=== PATIENT | male | born 2000 | race Caucasian/White ===

== ENCOUNTER 2022-08-10 13:27 | Emergency (ER) | payer BC, SELFPAY ==
[2022-08-10 13:32] VITALS: BP 119/72; PULSE 104; RESP 18; TEMP 37.9; O2SAT 96; BMI 21.7
[2022-08-10 14:26] LABS: PCR FLU A Negative PCR FLU A (Negative); PCR FLU B Negative PCR FLU B (Negative)
[2022-08-10 14:28] LABS: SARS PCR* POSITIVE SARS-CoV-2 (Negative)
--- NOTE | 2022-08-10 14:45 | ED.GENADULT ---
HPI - General Adult General Time Seen by Provider: 14:45 Date Seen: 08/10/22 Chief complaint: Fever Stated complaint: Fever Feels like he's dying Time Seen by Provider: 08/10/22 14:06 Source: patient and RN notes reviewed Mode of arrival: ambulatory Limitations: no limitations History of Present Illness HPI narrative: Roby is a 21-year-old male coming in stating he is feeling miserable. He has been having headaches, body aches, coughing and vomiting with underlying nausea. No diarrhea, no sore throat. He has been running fevers. He has a history of childhood asthma that has not been problematic. He has had some orthopedic injuries with fractures but otherwise no chronic current medical issues. He has been taking ibuprofen which does help with the fever. He has been able to drink but states he has not been able to eat due to vomiting for the last couple days. Nursing staff did do a triple viral swab on him on arrival, I had the result that he was COVID positive by the time I saw him. We did review this. We did review that COVID can be associated with GI symptomatology. Reviewed with him that we are not worried about him not eating at this point, soon as the illness starts to mildred for him, his appetite should recover. As far as fluids, we do need him to be able to drink. We discussed management with doing some IV fluids, some IV Toradol and Zofran while here. He would like to do so. With only 2 days of illness and vitals being stable, I do not feel that he needs a chest x-ray or any labs. At his age, no significant comorbidities, he should recover from this. He has no worrisome findings other than the vomiting which we will initiate some IV fluids and make sure he has some Zofran on discharge. Related Data Previous Rx's Medication Instructions Recorded ondansetron 4 mg disintegrating 4 mg PO Q6H PRN nausea and 08/10/22 tablet vomiting #20 tabs Allergies Allergy/AdvReac Type Severity Reaction Status Date / Time No Known Drug Allergies Allergy Verified 08/10/22 13:35 Review of Systems Status of ROS: Reports: 6 or more systems reviewed and unremarkable except as noted in History and below PFSH PFSH Social History Smoking Status: Never smoker Do you use any of these nicotine containing products: None How often do you have a drink containing alcohol: never AUDIT-C Alcohol total score: 0 Non-prescribed substance use: denies use Exam Const: Vital Signs, click to edit/add: Vital Signs - 24 hr 08/10/22 13:32 Temperature 100.2 F H Pulse Rate [Right Pulse Oximeter] 104 H Respiratory Rate 18 Blood Pressure [Ri ght Upper Arm] 119/72 Pulse Oximetry 96 Oxygen Delivery Me thod Room Air Documenting provider has reviewed patient's vital signs: yes Common normals: no apparent distress, average body habitus, oriented x3, no limitations and alert General appearance: cooperative, comfortable, well kempt, well developed and ill appearing HENMT: Common normals: normocephalic, head/scalp atraumatic, hearing grossly normal bilaterally, external ears normal, TM's normal bilaterally, external nose normal, nasal mucous membranes and turbinates normal, moist oral mucous membranes, oropharynx normal, dentition normal and gingiva normal Head and scalp: normocephalic and atraumatic Nose: external nose normal and nasal mucous membranes and turbinates normal External ear: external ears normal Tympanic membrane: TM's normal bilaterally Eye: Common normals: PERRL, EOMs intact bilaterally, conjunctivae normal and no scleral icterus Conjunctiva: conjunctiva(e) normal Pupil: PERRL Neck & C-Spine: Common normals: full ROM, no lymphadenopathy, supple and no meningeal signs Resp: Common normals: normal respiratory effort, no retractions, no use of accessory muscles and clear to auscultation bilaterally Auscultation: clear to auscultation bilaterally Cardio: Common normals: regular rate, regular rhythm, S1 normal heart sound, S2 normal heart sound, no gallops, no clicks and no murmurs Rate: regular rate Rhythm: regular rhythm Heart sounds: S1 normal and S2 normal GI: Common normals: Normal to inspection, nondistended, normoactive bowel sounds present, soft to palpation, non-tender, no hepatosplenomegaly and no masses Palpation: soft and no hepatosplenomegaly Neuro: Common normals: oriented x3 Sensorium/orientation: alert Meningeal signs: no meningeal signs Psych: Appearance: well kempt Course Course Hospital Course: COVID positive. Complaints of significant nausea and vomiting. Initiate 1 L normal saline, 15 mg IV Toradol and 4 mg IV Zofran. Plan to discharge home with prescription for Zofran. Vital Signs Vital signs: Initial Vital Signs Temperature 100.2 F H 08/10/22 13:32 Temperature Source Temporal Artery Scan 08/10/22 13:32 Pulse Rate 104 H 08/10/22 13:32 Respiratory Rate 18 08/10/22 13:32 Blood Pressure 119/72 08/10/22 13:32 Blood Pressure Mean 87 08/10/22 13:32 Blood Pressure Position Sitting 08/10/22 13:32 Pulse Oximetry 96 08/10/22 13:32 Oxygen Delivery Method 08/10/22 13:32 Vital Signs Temperature 100.2 F H 08/10/22 13:32 Pulse Rate 104 H 08/10/22 13:32 Respiratory Rate 18 08/10/22 13:32 Blood Pressure 119/72 08/10/22 13:32 Pulse Oximetry 96 08/10/22 13:32 Oxygen Delivery Method 08/10/22 13:32 Temperature 100.2 F H 08/10/22 13:32 Pulse Rate 104 H 08/10/22 13:32 Respiratory Rate 18 08/10/22 13:32 Blood Pressure 119/72 08/10/22 13:32 Pulse Oximetry 96 08/10/22 13:32 Oxygen Delivery Method 08/10/22 13:32 Medical Decision Making Lab Data Lab results reviewed: Yes I reviewed the patient's lab results Labs: Lab Results 08/10/22 Range/Units 13:31 SARS-CoV-2 (PCR) POSITIVE SARS-CoV-2 A (Negative) Influenza Type A (PCR) Negative PCR FLU A (Negative) Influenza Type B (PCR) Negative PCR FLU B (Negative) Critical Care Time Critical Care Time Critical Care Time: No Discharge Plan Discharge Clinical Impression: COVID-19 Condition: Stable Instructions: COVID-19 (Coronavirus Disease 2019) (ED) Additional Instructions: Tylenol and ibuprofen alternating every 3-4 hours as needed for fever and symptom control, follow bottle directions for dosing. Use the Zofran as prescribed to help control nausea and vomiting. Take small frequent sips of fluids to help you stay hydrated. Your appetite for solid should improve as you feel better. If you are not improving over the next week, have further concerns or symptoms with this illness, you are recommended to seek re-evaluation. You should quarantine as per CDC guidelines for for COVID-19. Activity Level: Activity as Tolerated Prescriptions: New ondansetron 4 mg tablet,disintegrating 4 mg PO Q6H PRN (Reason: nausea and vomiting) Qty: 20 0RF Stand Alone Forms: [employer] Info Instructions
[2022-08-10] MEDS: 0.9 % SODIUM CHLORIDE 1000 ml 1,000 ML IV (15:26)
[2022-08-10] MEDS: ONDANSETRON 2 MG/ML inj 4 MG IVP (15:27)
[2022-08-10] MEDS: KETOROLAC 15 MG/ML inj IVP (15:27)
== END 2022-08-10 16:07 | disposition home or self-care (01) ==
PROVIDERS: Emergency Provider Family Medicine
DX: U07.1 COVID-19 (principal)
CPT/HCPCS: 87631; 96374; 96375; 99283; 99284; J1885; J2405; J7030

== ENCOUNTER 2022-10-08 21:07 | Emergency (ER) | payer BC, SELFPAY ==
[2022-10-08 21:25] VITALS: BP 134/79; PULSE 90; RESP 18; TEMP 37; O2SAT 99; BMI 21.7
--- NOTE | 2022-10-08 21:42 | ED_ITS ---
HPI - Extremity Injury (Lower) General Time Seen by Provider: 21:42 Date Seen: 10/08/22 Chief Complaint: Extremity Pain/Injury, Lower Stated Complaint: foot injury Time Seen by Provider: 10/08/22 21:42 Source: patient and RN notes reviewed Mode of arrival: ambulatory Limitations: no limitations History of Present Illness HPI Narrative: Patient is a 21-year-old male coming in with a known fracture in his ankle and a bone in his foot per report. He was doing motocross and sustained an injury in [place]. He has a splint on his leg, states it feels too tight. He noticed the development of a blister on the dorsum of his foot tonight. He has had no fevers or chills. States the cast is feeling extremely tight. He notes that he started to have some tingling in his toes. He went to [facility] and it was going to be a 9 hour wait. He is attempting to get scheduled for surgery as he was told this would require surgery. He is awaiting a call back from [place] regarding his orthopedic surgery being scheduled. Related Data Previous Rx's Medication Instructions Recorded ondansetron 4 mg disintegrating 4 mg PO Q6H PRN nausea and 08/10/22 tablet vomiting #20 tabs Allergies Allergy/AdvReac Type Severity Reaction Status Date / Time No Known Drug Allergies Allergy Verified 10/08/22 21:33 Review of Systems Narrative: As per HPI PFSH PFS Social History Smoking Status: Never smoker Do you use any of these nicotine containing products: None How often do you have a drink containing alcohol: never AUDIT-C Alcohol total score: 0 Non-prescribed substance use: denies use Exam Const: Vital Signs, click to edit/add: Vital Signs - 24 hr 10/08/22 21:25 Temperature 98.6 F Pulse Rate [Pulse Oximeter] 90 Respiratory Rate 18 Blood Pressure [Le ft Upper Arm] 134/79 Pulse Oximetry 99 Oxygen Delivery Me thod Room Air Documenting provider has reviewed patient's vital signs: yes Common normals: no apparent distress, average body habitus, oriented x3, no limitations, healthy appearing and alert General appearance: cooperative, comfortable, well kempt and well developed Other: Patient had a posterior short-leg splint with U tongue support on. He had a large blister just at the base of his toes on the dorsum of the foot. It was fluid-filled, clear. The patient's current splint was taken down carefully, observing stability of the extremity. He felt immediate improvement of the tightness in felt better soon as this was taken off. It was a very well done splint but I think the amount of swelling he had was significantly bound by the cast padding. He did have further blisters from the swelling around his ankle and foot. There was more of a blood blister medially along the ankle. There was no concerning skin breakdown. There was quite a bit of swelling and bruising throughout his lower extremity into the foot. I reapplied a posterior splint with U tong support using Ortho Glass and standard materials. Patient stated he felt much better with the new splint on. Patient understands that I would like to reimage his foot and ankle to ensure that there has been no significant breakdown of the fracture realignment. When splinting him, we were extremely careful and noted no concerning movement of his extremity. Neuro: Common normals: oriented x3 Sensorium/orientation: alert Psych: Appearance: well kempt Course Reevaluation(s) Reevaluation #1: Have reviewed options with patient. We do not have Orthopedics that will do this type of fracture surgery here. He really needs specialty care. I cannot transfer him to [place]. He will plan on discharge and sounds as if he may make hi s way to [place] on his own. I am not transferring him there but understand in do understand his desire to go there. He will have to recheck in as an ER patient. Did provide him with 5 mg oral oxycodone tablet while here for some pain relief. At time of discharge, his right toes were warm but swollen. The blister was stable. He could feel when I touched his toes but they would feel tingly. His pain had improved with releasing of his old splint. Time: 00:54 Consultations Consultation #1: Have contacted the transfer center and spoke with Martha MCKEE at [facility]. She will check to make sure all the images are there, will page Orthopedics. Martha did call back, stated patient had not been seen there and Orthopedics would not likely consult on this patient, would recommend that he go back to where he had the cast put on. Reviewed with her that that was in the state of [place]. We reviewed the case a little bit more in depth. She did states that she would call Orthopedics back and see if they would at least look at the images. She called back at 12:33 p.m. a.m.. The orthopedist did state he needs surgery, did want him to come to their ER but he cannot be accepted there at this time as they are on full hospital diversion. She stated that he would need to go to the closest hospital with a had orthopedic capabilities. In all honesty, [facility] was probably quit distant to such places as the [facility] or [place]. Is not likely that [place] would take this lower level trauma at this time anyway. Will review options with the patient. Time: 23:49 Vital Signs Vital signs: Initial Vital Signs Temperature 98.6 F 10/08/22 21:25 Temperature Source Temporal Artery Scan 10/08/22 21:25 Pulse Rate 90 10/08/22 21:25 Pulse Rhythm 10/08/22 21:25 Pulse Strength 3+ Normal 10/08/22 21:25 Respiratory Rate 18 10/08/22 21:25 Blood Pressure 134/79 10/08/22 21:25 Blood Pressure Mean 97 10/08/22 21:25 Blood Pressure Position Sitting 10/08/22 21:25 Pulse Oximetry 99 10/08/22 21:25 Oxygen Delivery Method 10/08/22 21:25 Vital Signs Temperature 98.6 F 10/08/22 21:25 Pulse Rate 90 10/08/22 21:25 Respiratory Rate 18 10/08/22 21:25 Blood Pressure 134/79 10/08/22 21:25 Pulse Oximetry 99 10/08/22 21:25 Oxygen Delivery Method 10/08/22 21:25 Temperature 98.6 F 10/08/22 21:25 Pulse Rate 90 10/08/22 21:25 Respiratory Rate 18 10/08/22 21:25 Blood Pressure 134/79 10/08/22 21:25 Pulse Oximetry 99 10/08/22 21:25 Oxygen Delivery Method 10/08/22 21:25 MDM - Extremity Injury (Lower) Imaging Data X-ray right foot: Attestation: I have reviewed the pertinent imaging results. My impression: Appears to have a displaced talus fracture, will await Radiology over-read on this. Do not have his prior films to compare to. Radiologist's impression: Patient: MEENU VÁZQUEZ Facility:?[facility] Patient ID:?[id number] Site Patient ID:?[id number] Site :?[id number] Study:?XRay Extremity Right FOOT-10/08/2022 11:03:47 PM Ordering Physician:Zulema Rodriguez Final Report: Indication: Recent fracture, increasing pain. Technique: Right foot 3 views. Comparison: Right ankle radiographs from the same day. Finding/Impression: Overlying splint material obscures fine osseous detail. There is a displaced, comminuted vertical talar neck fracture. Mildly displaced, comminuted fibular tip and mildly displace medial malleolar fractures are also present. These fractures are better visualized on the ankle radiographs from the same day. The talar dome is not well visualized on the current exam. Soft tissue swelling about the ankle. Dictated by Brandon Pascual MD @ 10/08/2022 11:50:50 PM (Electronic Signature) X-ray right ankle: Attestation: I have reviewed the pertinent imaging results. My impression: Has medial and lateral malleolus fractures, talus fracture. This seems complex, await Radiology over-read. We will be sending these images down to [place] as well. Radiologist's impression: Patient: MEENU VÁZQUEZ Facility:?[facility] Patient ID:?[id number] Site Patient ID:?[id number]. Site :?[id number] Study:?XRay Extremity Right ANKLE 3 VIEWS-10/08/2022 11:05:02 PM Ordering Physician:?Michelle Rodriguez Final Report: INDICATION: Known fracture. Increasing pain. COMPARISON: None provided. FINDINGS: Complex fracture of the ankle involving juxta-articular margin lateral malleolus with comminution and mild displacement of fracture fragments, transverse fracture with comminution and moderate diastasis through the neck of the talus with apparent rotation of the body and dome medially and posteriorly. Minimally displaced fracture through the base of medial malleolus. Fiberglass splint. CT recommended for better characterization. Given complexity and degree of injury, contrast exam may be indicated to assess vascularity. Dictated by Shawn Webster MD @ 10/08/2022 11:53:18 PM (Electronic Signature) Discharge Plan Discharge Clinical Impression: Bimalleolar ankle fracture, Fracture of talus Condition: Unchanged Instructions: Ankle Fracture (ED) Additional Instructions: Need to see an orthopedist hopefully tomorrow. Continue to ice and elevate this leg. If the blister does pop on its own, can use a light dressing over it. You really need to have surgery of this fracture soon. Leave the splint on, keep splint dry. No weight-bearing on this leg. Prescriptions: No Action ondansetron 4 mg tablet,disintegrating 4 mg PO Q6H PRN (Reason: nausea and vomiting) Qty: 20 0RF Follow Up/Referrals: Provider,Not a Local [Primary Care Provider] - Stand Alone Forms: [employer] Info Instructions
--- NOTE | 2022-10-08 22:15 | CRLHL7_ITS ---
For Patients: As a result of the Cures Act, medical imaging exams and procedure reports are released immediately into your electronic medical record. You may view this report before your referring provider. If you have questions, please contact your health care provider. INDICATION: Known fracture. Increasing pain. COMPARISON: None provided. FINDINGS: Complex fracture of the ankle involving juxta-articular margin lateral malleolus with comminution and mild displacement of fracture fragments, transverse fracture with comminution and moderate diastasis through the neck of the talus with apparent rotation of the body and dome medially and posteriorly. Minimally displaced fracture through the base of medial malleolus. Fiberglass splint. CT recommended for better characterization. Given complexity and degree of injury, contrast exam may be indicated to assess vascularity. Dictated by Shawn Webster MD @ 10/08/2022 11:53:18 PM (Electronically Signed)
--- NOTE | 2022-10-08 22:15 | CRLHL7_ITS ---
For Patients: As a result of the Century Cures Act, medical imaging exams and procedure reports are released immediately into your electronic medical record. You may view this report before your referring provider. If you have questions, please contact your health care provider. Indication: Recent fracture, increasing pain. Technique: Right foot 3 views. Comparison: Right ankle radiographs from the same day. Finding/Impression: Overlying splint material obscures fine osseous detail. There is a displaced, comminuted vertical talar neck fracture. Mildly displaced, comminuted fibular tip and mildly displace medial malleolar fractures are also present. These fractures are better visualized on the ankle radiographs from the same day. The talar dome is not well visualized on the current exam. Soft tissue swelling about the ankle. Dictated by Brandon Pascual MD @ 10/08/2022 11:50:50 PM (Electronically Signed)
[2022-10-09] MEDS: OXYCODONE 5 MG TABLET PO (00:30)
== END 2022-10-09 01:00 | disposition home or self-care (01) ==
PROVIDERS: Emergency Provider Family Medicine
DX: S82.841A Displaced bimalleolar fracture of right lower leg, initial encounter for closed fracture (principal); S92.101A Unspecified fracture of right talus, initial encounter for closed fracture
CPT/HCPCS: 73610; 73630; 99283; 99284; A9270